=== PATIENT | female | born 1955 | race Caucasian/White ===

== ENCOUNTER → 2017-10-10 | Outpatient (CLI) | payer MEDICARE, MEDICAID ==
[~2017-10-10] MED LIST: DICL75TA2 PO; FLUO20CA25 PO; LORA10TA7 PO; LOSA50TA6 PO; MECL-106 PO; MECL25TA56 PO; SIMV40TA4 PO
--- NOTE | 2017-10-11 08:49 | Diagnostic Imaging Report ---
Bilateral screening mammogram 2D views with tomosynthesis The current study was also evaluated with a Computer Aided Detection (CAD) system. Indication: Screening. No current complaints stated on the questionnaire. COMPARISON: 10/04/2016. FINDINGS: The breasts are composed of scattered fibroglandular densities. There are scattered benign-appearing calcifications. No mass, architectural distortion or suspicious cluster of calcifications identified. Allowing for technique and positional differences, no suspicious change is seen. IMPRESSION: No significant change. ACR BI-RADS Category 2: Benign findings. Result letter will be mailed to the patient. Note: At least 10% of breast cancer is not imaged by mammography. Dictated by: Dictated on workstation # [id number]
== END ==
LOC: RAD 11:13
PROVIDERS: ATTEND Family Medicine
DX: Z12.31 Encounter for screening mammogram for malignant neoplasm of breast (principal)
CPT/HCPCS: 77067

== ENCOUNTER → 2018-09-17 | Outpatient (CLI) | payer MEDICARE, MEDICAID ==
--- NOTE | 2018-09-17 12:49 | Diagnostic Imaging Report ---
Indication: Bilateral knee pain 3 views of the right knee and 3 views of left knee are obtained. In the left knee, the medial tibiofemoral joint space is nearly completely obliterated with [id number] contact and sclerosis of the opposing bony surfaces as well as large osteophytes forming at the margins of the articular surfaces. The lateral compartment is maintained. There are hypertrophic changes of the patellofemoral joint articular margins. On the right knee there is some narrowing of the medial tibiofemoral joint space. The joint space measures 3 mm in thickness versus lateral compartment that measures 8 mm in thickness. There is some small osteophytes forming at the margins of the articular surface. There is spurring at the margins of the patellofemoral joints superiorly and inferiorly. Impression: Tricompartmental degenerative changes of both knees. This is most severe in the medial compartment of the left knee and in both patellofemoral joints. Dictated by: Dictated on workstation # [id number]
== END ==
LOC: RAD 09:55
PROVIDERS: ATTEND Family Medicine
DX: M17.0 Bilateral primary osteoarthritis of knee (principal)

== ENCOUNTER → 2019-09-26 | Outpatient (CLI) | payer MEDICARE, MEDICAID ==
--- NOTE | 2019-09-26 10:41 | Diagnostic Imaging Report ---
INDICATION: Routine screening. Comparison is made with prior mammogram from 10/10/2017 and 10/04/2016. 2-D and 3-D bilateral screening mammography was performed with CAD. Scattered fibroglandular densities are identified bilaterally. There are numerous benign-appearing nodules scattered throughout both breasts. There are benign calcifications in both breasts. No spiculated mass or malignant-appearing microcalcifications are seen. Axillae are unremarkable. IMPRESSION: BI-RADS Category 2 No mammographic features suspicious for malignancy are identified. Dictated by: Dictated on workstation # [id number]
== END ==
LOC: RAD 09:37
PROVIDERS: ATTEND Family Medicine
DX: Z12.31 Encounter for screening mammogram for malignant neoplasm of breast (principal)
CPT/HCPCS: 77067

== ENCOUNTER → 2021-01-28 | Outpatient (CLI) | payer MEDICARE, MEDICAID ==
--- NOTE | 2021-01-28 12:15 | Diagnostic Imaging Report ---
Indication: Routine screening. Comparison is made with prior mammogram 09/26/2019 and 10/10/2017. 2-D and 3-D bilateral screening mammography was performed with CAD. Scattered fibroglandular densities are identified bilaterally. Fibronodular parenchymal pattern is again noted. Scattered benign calcifications are noted. No spiculated mass or malignant appearing microcalcifications are seen. Axillae are unremarkable. IMPRESSION: BI-RADS Category 2 No mammographic features suspicious for malignancy are identified. ACR BI-RADS Category 2: Benign findings. Result letter will be mailed to the patient. Note: At least 10% of breast cancer is not imaged by mammography. Dictated by: Dictated on workstation # [id number]
== END ==
LOC: RAD 08:46
PROVIDERS: ATTEND Family Medicine
DX: Z12.31 Encounter for screening mammogram for malignant neoplasm of breast (principal)
CPT/HCPCS: 77063; 77067